=== PATIENT | female | born 1975 | race Caucasian/White ===

== ENCOUNTER 2020-11-17 | Outpatient (REF) | payer OTHER, SELFPAY | END 2020-11-17 00:01 | disposition home or self-care (01) | LOC: HO.WFDLNP | PROVIDERS: Visit Provider Family Medicine | DX: Z20.822 Contact with and (suspected) exposure to COVID-19 (principal) | CPT/HCPCS: U0003 ==

== ENCOUNTER 2020-11-18 13:54 | Outpatient (REF) | payer OTHER, SELFPAY | END 2020-11-18 13:55 | disposition home or self-care (01) | LOC: HO.LNP 13:54 | PROVIDERS: Visit Provider Family Medicine | DX: Z13.89 Encounter for screening for other disorder (principal) ==

== ENCOUNTER 2022-10-19 16:41 | Outpatient (REF) | payer OTHER, SELFPAY ==
[2022-10-19 18:04] LABS: Alanine Aminotransferase 9 U/L (0-31); Alkaline Phosphatase 89 U/L (39-117); Anion Gap 9 (12-20); Aspartate Amino Transferase 12 U/L (5-31); Bilirubin Total 0.2 mg/dL (0.0-1.0); Blood Urea Nitrogen 15 mg/dL (9-16); Calcium 8.6 mg/dL (8.4-10.2); Carbon Dioxide 22 mmol/L (22-29); Chloride 110 mmol/L (96-108); Estimated Glomerular Filt Rate 56; Glucose Random 88 mg/dL (60-115); Potassium 3.9 mmol/L (3.3-5.1); Sodium 137 mmol/L (135-145); T4 Thyroxine 5.6 ug/dL (4.5-12.0); Thyroid Stimulating Hormone 0.78 uIU/mL (0.32-4.0); Total Protein 6.3 g/dL (6.5-8.0)
[2022-10-19 18:16] LABS: Folate 7.3 ng/mL (> or = 4.0); Vitamin B12 307 pg/mL (200-900)
[2022-10-21 09:14] LABS: Lyme Abs Screen <0.90 index
== END 2022-10-19 16:42 | disposition home or self-care (01) ==
LOC: HO.LAB 16:41
PROVIDERS: PCP Internal Medicine; Visit Provider Psychiatry & Neurology Neurology
DX: G43.909 Migraine, unspecified, not intractable, without status migrainosus (principal)
CPT/HCPCS: 36415; 80053; 82607; 82746; 84436; 84443; 86617; 86618

== ENCOUNTER 2022-10-25 17:44 | Outpatient (REF) | payer OTHER, SELFPAY | END 2022-10-25 17:45 | disposition home or self-care (01) | LOC: HO.MRI 17:44 | PROVIDERS: Visit Provider Psychiatry & Neurology Neurology | DX: G31.84 Mild cognitive impairment of uncertain or unknown etiology (principal) | CPT/HCPCS: 70551 ==

== ENCOUNTER → 2023-04-15 13:25 | Outpatient (BNVA) | payer OTHER, SELFPAY | PROVIDERS: PCP Internal Medicine; Visit Provider Physician Assistant | DX: M54.12 Radiculopathy, cervical region (principal) | CPT/HCPCS: 99202 ==

== ENCOUNTER 2023-06-09 08:10 | Day surgery (SDC) | payer OTHER, SELFPAY ==
--- NOTE | 2023-05-25 | ECG_ITS ---
Test Reason : preop Blood Pressure : / mmHG Vent. Rate : 061 BPM Atrial Rate : 061 BPM P-R Int : 146 ms QRS Dur : 076 ms QT Int : 436 ms P-R-T Axes : -13 056 037 degrees QTc Int : 438 ms Normal sinus rhythm with sinus arrhythmia Normal ECG When compared with ECG of 04-JUN-2019 16:50, No significant change was found Referred By: Sara Zepeda Electronically Signed By:Guanaco Dupree
[2023-05-25 12:40] VITALS: BMI 27.0
[2023-05-25 12:46] VITALS: BP 108/77; PULSE 69; RESP 20; O2SAT 96
--- NOTE | 2023-05-25 13:01 | P.CONAN_ITS ---
Documented by User: Sara Zepeda NP 06/02/23 12:30 HPI - Anesthesia Eval Consult details Narrative: 47yo F for C4-5,C5-6 Ant Cerv Discectomy w/ fusion, 06/09/23 No recent illness No increased CP/SOB. Chronic CP / body pain. SOB at baseline r/t hx smoking Hx of seizures. Last 2-3 years ago. On topamax and follows neuro GERD with prn tums PMFSH Active Problems Active Problems: All Active Problems (Updated 05/25/23 @ 12:55 by Merle Morocho RN) Contact with or exposure to other viral diseases (Acute) COPD exacerbation (Acute) Urinary hesitancy (Acute) Cough (Acute) Cervical radiculopathy (Acute) Past Medical History Medical History Agoraphobia Anxiety Arthritis Asthma Attention deficit disorder Back pain Bone spur Bronchitis Cervical root syndrome Closed head injury COPD (chronic obstructive pulmonary disease) COVID-19 Dementia Depression Diarrhea Difficulty swallowing Elevated cholesterol Fibromyalgia GERD (gastroesophageal reflux disease) History of traumatic head injury Kidney stones MCI (mild cognitive impairment) with memory loss Migraine Neuropathy Numbness Personal history of nonsuicidal self-injury PTSD (post-traumatic stress disorder) Seizures Shingles Thyroid nodule Umbilical hernia UTI (urinary tract infection) Vitamin D deficiency Weakness Wheezing Family History Family history of problems with anesthesia: No Surgical History Surgical History H/O breast augmentation History of hysterectomy Hx of inguinal hernia repair History of Problems with Anesthesia: No Social History Social History Are you a primary care navigator to a significant other at home: No Do you presently have visiting nurse or other home services: No (VNA, better life at home) Patient Tobacco Use Status: Former Tobacco user Quit Date: 2019 Years Smoked: 19 Use of substances other than those prescribed or required for medical reasons: Yes Substance Use Frequency: Daily Have you been hit, kicked, punched, or otherwise hurt by someone within the past year? If so, by whom?: No Are you DNR?: No Advance Directives: No Advance Directives Information Provided: No Advance Directives on File: No Recently lost weight without trying: No Eating poorly because of decreased appetite: No Nutrition Risks: No Nutritional Risk Patient : No : No Poor oral hygiene: No Meds Allergies Allergy/AdvReac Type Severity Reaction Status Date / Time SEASONAL ALLERGIES Allergy Unknown unk Uncoded 06/09/23 08:35 Home Medications Medication Instructions Recorded Confirmed Last Taken Type dextroamphetamine-amphetamine ER 1 cap PO BID 04/30/22 05/25/23 Unknown History 20 mg 24hr capsule,extend release (Adderall XR) cholecalciferol (vitamin D3) 50 50 mcg PO DAILY 05/25/23 05/25/23 Unknown History mcg (2,000 unit) tablet clonazepam 1 mg tablet 1 mg PO TID PRN Anxiety 05/25/23 05/25/23 Unknown History fluoxetine 20 mg capsule 20 mg PO BID 05/25/23 05/25/23 Unknown History fluticasone propionate 110 1 puff inhalation BID PRN 05/25/23 05/25/23 Unknown History mcg/actuation HFA aerosol inhaler Shortness Of Breath (Flovent HFA) meclizine 25 mg tablet 25 mg PO BEDTIME 05/25/23 05/25/23 Unknown History topiramate 50 mg tablet 50 mg PO BID 05/25/23 05/25/23 Unknown History trazodone 100 mg tablet 100 mg PO BEDTIME PRN Insomnia 05/25/23 05/25/23 Unknown History Exam Exam Date and Time: May 25, 2023 130 Height,Weight and Vital Signs: Height 5 ft 5 in Weight 73.482 kg Last Vital Signs Pulse 69 05/25/23 12:46 Resp 20 05/25/23 12:46 BP 108/77 05/25/23 12:46 Pulse Ox 96 05/25/23 12:46 O2 Del Method Room Air 05/25/23 12:46 Pertinent Lab Results Pertinent Lab Results: Lab Results 05/25/23 05/25/23 Range/Units 13:36 13:36 WBC 7.9 (4.8-10.8) X10*3/uL RBC 4.76 (4.20-5.50) X10*6/uL Hgb 15.2 (12.0-16.0) g/dl Hct 46.9 (37.0-47.0) % MCV 98.5 H (80.0-98.0) fL MCH 31.9 (27.0-33.0) pg MCHC 32.4 (31.0-35.0) g/dl RDW 11.7 (11.0-16.0) % Plt Count 253 (160-400) X10*3/uL MPV 10.1 (9.4-12.3) fL Absolute Nucleated RBC 0.000 (0.0-0.012) X10*3/uL Nucleated RBC % (auto) 0.0 (0.0-0.2) /100WBC Sodium 140 (135-145) mmol/L Potassium 4.7 D (3.3-5.1) mmol/L Chloride 109 H (96-108) mmol/L Carbon Dioxide 25 (22-29) mmol/L Anion Gap 11 L (12-20) BUN 12 (9-16) mg/dL Creatinine 0.85 (0.5-1.4) mg/dL Estim Creat Clear Calc 82.1 Estimated GFR > 60 Random Glucose 88 (60-115) mg/dL Calcium 9.1 (8.4-10.2) mg/dL Narrative Narrative: EKG 05/2023 Vent. Rate : 061 BPM ? ? Atrial Rate : 061 BPM ?? P-R Int : 146 ms? QRS Dur : 076 ms ? ? QT Int : 436 ms ? ? ? P-R-T Axes : -13 056 037 degrees ?? QTc Int : 438 ms ? Normal sinus rhythm with sinus arrhythmia Normal ECG When compared with ECG of 04-JUN-2019 16:50, No significant change was found Airway TM Dist: >3cm Neck ROM: Poor Loose/Missing/Broken Teeth: No Heart: RRR Lungs: CTAB Assessment and Plan Assessment Anesthesia Assessment: Anesthesia Plan Discussed and PAT Visit Final Anesthetic Review Family History of Problems with Anesthesia: No History of Problems with Anesthesia: No Documented by User: Walker Rodriguez MD 06/09/23 09:16 [facility] Past Medical History Medical History Agoraphobia Anxiety Arthritis Asthma Attention deficit disorder Back pain Bone spur Bronchitis Cervical root syndrome Closed head injury COPD (chronic obstructive pulmonary disease) COVID-19 Dementia Depression Diarrhea Difficulty swallowing Elevated cholesterol Fibromyalgia GERD (gastroesophageal reflux disease) History of traumatic head injury Kidney stones MCI (mild cognitive impairment) with memory loss Migraine Neuropathy Numbness Personal history of nonsuicidal self-injury PTSD (post-traumatic stress disorder) Seizures Shingles Thyroid nodule Umbilical hernia UTI (urinary tract infection) Vitamin D deficiency Weakness Wheezing Surgical History Surgical History H/O breast augmentation History of hysterectomy Hx of inguinal hernia repair Social History Social History Are you a primary care navigator to a significant other at home: No Do you presently have visiting nurse or other home services: No (VNA, better life at home) Patient Tobacco Use Status: Former Tobacco user Quit Date: 2018 Years Smoked: 19 Use of substances other than those prescribed or required for medical reasons: Yes Substance Use Frequency: Daily Have you been hit, kicked, punched, or otherwise hurt by someone within the past year? If so, by whom?: No Are you DNR?: No Advance Directives: No Advance Directives Information Provided: No Advance Directives on File: No Recently lost weight without trying: No Eating poorly because of decreased appetite: No Nutrition Risks: No Nutritional Risk Patient : No : No Poor oral hygiene: No Meds Allergies Allergy/AdvReac Type Severity Reaction Status Date / Time SEASONAL ALLERGIES Allergy Unknown unk Uncoded 06/09/23 08:35 Home Medications Medication Instructions Recorded Confirmed Last Taken Type dextroamphetamine-amphetamine ER 1 cap PO BID 04/30/22 05/25/23 Unknown History 20 mg 24hr capsule,extend release (Adderall XR) cholecalciferol (vitamin D3) 50 50 mcg PO DAILY 05/25/23 05/25/23 Unknown History mcg (2,000 unit) tablet clonazepam 1 mg tablet 1 mg PO TID PRN Anxiety 05/25/23 05/25/23 Unknown History fluoxetine 20 mg capsule 20 mg PO BID 05/25/23 05/25/23 Unknown History fluticasone propionate 110 1 puff inhalation BID PRN 05/25/23 05/25/23 Unknown History mcg/actuation HFA aerosol inhaler Shortness Of Breath (Flovent HFA) meclizine 25 mg tablet 25 mg PO BEDTIME 05/25/23 05/25/23 Unknown History topiramate 50 mg tablet 50 mg PO BID 05/25/23 05/25/23 Unknown History trazodone 100 mg tablet 100 mg PO BEDTIME PRN Insomnia 05/25/23 05/25/23 Unknown History Exam Airway Mallampati Class: III Assessment and Plan Assessment Anesthesia Assessment: Chart Reviewed Final Anesthetic Review NPO: Yes ASA Class: III Final Preanesthetic Review: No Changes in Pt Med Stat, Meds/Allgs Chart Reviewed, Consent Obtained/Reviewed and Anes Risks/Benef Reviewed Patient Risk: Intermediate Procedure Risk: Intermediate Anesthetic Plan Anesthetic Plan: GA and Agree w/ Assess. and Plan Disposition: Standard PACU
[2023-05-25 14:38] LABS: Hematocrit 46.9 % (37.0-47.0); Hemoglobin 15.2 g/dl (12.0-16.0); Mean Corpuscular HGB Conc 32.4 g/dl (31.0-35.0); Mean Corpuscular Hemoglobin 31.9 pg (27.0-33.0); Mean Corpuscular Volume 98.5 fL (80.0-98.0); Mean Platelet Volume 10.1 fL (9.4-12.3); Platelet Count 253 X10*3/uL (160-400); Red Blood Count 4.76 X10*6/uL (4.20-5.50); Red Cell Distribution Width 11.7 % (11.0-16.0); White Blood Count 7.9 X10*3/uL (4.8-10.8)
[2023-05-26 02:37] LABS: Anion Gap 11 (12-20); Blood Urea Nitrogen 12 mg/dL (9-16); Calcium 9.1 mg/dL (8.4-10.2); Carbon Dioxide 25 mmol/L (22-29); Chloride 109 mmol/L (96-108); Creatinine Clr Calc Pharmacy 82.1; Estimated Glomerular Filt Rate > 60; Glucose Random 88 mg/dL (60-115); Potassium 4.7 mmol/L (3.3-5.1); Sodium 140 mmol/L (135-145)
[2023-06-09] VITALS (12 sets, daily range): BP systolic 113–162; BP diastolic 64–90; PULSE 61–81; RESP 16–20; TEMP 36.1–37; O2SAT 94–98
--- NOTE | ~2023-06-09 | FL_ITS ---
EXAMINATION: XR FLUOROSCOPY WITH IMAGES CLINICAL INFORMATION: C4-C5 and C5-C6 anterior cervical discectomy with fusion. COMPARISON: None available. TECHNIQUE: Fluoroscopy Supervised By: Dr Aldana. Fluoroscopy Time: Less than 10 seconds. Cumulative Dose: 1.26 mGy. DAP: 0.345 Gycm2. Images: 2. FINDINGS: 2 intraoperative fluoroscopic imaging demonstrates hardware in place for anterior cervical discectomy and fusion at the C4-C5 and C5-C6 levels. Hardware appears intact on this C-arm study. FL/FL guidance in OR IMPRESSION: Intraoperative fluoroscopy for cervical spinal surgery.
--- NOTE | 2023-06-09 07:10 | P.DS_ITS ---
DS: Providers Provider Primary care physician: Mayte Spencer MD DS: Diagnosis Discharge Diagnosis (1) Cervical radiculopathy: Status: Acute DS: Summary Time Spent with Patient Time attestation: Total time managing care of this patient today ____ minutes. Discharge coordination time: Less than 30 minutes Quality: Safe Use of Opioids Does Pt have an Active Cancer Diagnosis on the Problem List?: No Quality: Stroke Does the patient have a stroke diagnosis?: No Physical Exam Vital Signs: Vital Signs: Last Vital Signs Pulse 69 05/25/23 12:46 Resp 20 05/25/23 12:46 BP 108/77 05/25/23 12:46 Pulse Ox 96 05/25/23 12:46 O2 Del Method Room Air 05/25/23 12:46 BMI result Body Mass Index 27.0 Discharge Plan Discharge Anticipated Discharge Date/Time: 06/09/23 12:06 Patient Disposition: Home, Self-Care Discharge Diagnosis: CERVICAL MYELOPATHY Referrals: Mayte Spencer MD [Primary Care Provider] - 1 Week Discharge Medications: Continued clonazepam 1 mg tablet 1 mg PO TID PRN (Reason: Anxiety) trazodone 100 mg tablet 100 mg PO BEDTIME PRN (Reason: Insomnia) meclizine 25 mg tablet 25 mg PO BEDTIME fluoxetine 20 mg capsule 20 mg PO BID fluticasone propionate [Flovent HFA] 110 mcg/actuation HFA aerosol inhaler 1 puff inhalation BID PRN (Reason: Shortness Of Breath) topiramate 50 mg Tablet 50 mg PO BID cholecalciferol (vitamin D3) 50 mcg (2,000 unit) tablet 50 mcg PO DAILY dextroamphetamine-amphetamine [Adderall XR] 20 mg capsule,extended release 24hr 1 cap PO BID albuterol sulfate [ProAir HFA] 90 mcg/actuation HFA aerosol inhaler 2 puff inhalation Q4-6H PRN (Reason: shortness of breath or wheezing) 30 Days Qty: 8.5 0RF Discharge Orders: Discharge Order (Routine); Ordered 06/09/23 Ordered By: Kwame Griffin Diet: Advance to usual diet Activity on Discharge: As tolerated Stand Alone Forms: Patient Portal Discharge page Activity Restrictions/Additional Instructions: After your spinal surgery we ask you to observe the following restrictions /guidelines: Activity: It is normal to feel some discomfort as you increase your activity, but that will improve with time. We ask you avoid heavy lifting or acitivities that cause pain. As a general rule, 8lbs is a safe limit for lifting right after surgery. Walk as much as you feel comfortable but not to exhaustion. You will feel extra tired the first few days after surgery. Stay well hydrated. It is OK to walk up and down stairs You may return to driving when you are off narcotics (such as vicodin, oxycodone, dilaudid, etc), and you are back to normal functional capacity. If you have any concerns please check with office before driving. Return to work is specific to each patient and each surgery, so please speak with your doctor/PA at first follow up. Please bring paperwork such as FMLA at that time if you need it filled out. Medications: We will give you a short supply of narcotics after surgery (usually one weeks worth). If you need more please call the office but do not use more than prescribed. You will need to give our office 48 hours notice if you need narcotics refilled and we do not fill narcotics on weekends or evenings. If you are on a narcotic, it is a good idea to take a stool softener such as colace or senna to avoid constipation If you take blood thinner such as aspirin, Plavix, Coumadin, Effient, Eliquis etc for conditions such as Afib, DVT, Pulmonary embolus, coronary disease, stents etc please speak with your surgeon about specific details as to when you can resume these medications. You can resume NSAIDs on post op day 1 (eg: Motrin, Naproxen, etc). Follow up: Please call the office, , after surgery to arrange a 3 week follow up for wound check. Wound Care: You may remove your dressing on the first day after surgery. You may leave open to air. Please do not remove the steri strips underneath. they will fall off on their own in one week. IT IS NORMAL FOR THE WOUND TO OOZE OR BE BLOODY FOR A FEW DAYS AFTER SURGERY. I F THIS HAPPENS JUST PLACE NEW DRESSING OVER IT TO AVOID STAINING CLOTHES. You may shower on post op day # 1 We ask that you do not let the water soak the wound. If it does get wet, just towel dry lightly. Please do not scrub your incision or place any type of chemical/ointment on the wound. No tub baths, pools or jacuzzis for one month. If you have any leaking or redness from your wound, or fevers, please call office Care Plan Goals: Follow-up in office in 3 weeks. Health Concerns: None. Plan of Treatment: Return to activity as tolerated. Assessment: Stable.
--- NOTE | 2023-06-09 07:10 | P.DS_ITS ---
DS: Providers Provider Primary care physician: Mayte Spencer MD DS: Diagnosis Discharge Diagnosis (1) Cervical radiculopathy: Status: Acute DS: Summary Time Spent with Patient Time attestation: Total time managing care of this patient today ____ minutes. Physical Exam Vital Signs: Vital Signs: Last Vital Signs Pulse 69 05/25/23 12:46 Resp 20 05/25/23 12:46 BP 108/77 05/25/23 12:46 Pulse Ox 96 05/25/23 12:46 O2 Del Method Room Air 05/25/23 12:46 BMI result Body Mass Index 27.0 Discharge Plan Discharge Patient Disposition: Home, Self-Care Referrals: Mayte Spencer MD [Primary Care Provider] - 1 Week Discharge Medications: No Action clonazepam 1 mg tablet 1 mg PO TID PRN (Reason: Anxiety) trazodone 100 mg tablet 100 mg PO BEDTIME PRN (Reason: Insomnia) meclizine 25 mg tablet 25 mg PO BEDTIME fluoxetine 20 mg capsule 20 mg PO BID fluticasone propionate [Flovent HFA] 110 mcg/actuation HFA aerosol inhaler 1 puff inhalation BID PRN (Reason: Shortness Of Breath) topiramate 50 mg Tablet 50 mg PO BID cholecalciferol (vitamin D3) 50 mcg (2,000 unit) tablet 50 mcg PO DAILY dextroamphetamine-amphetamine [Adderall XR] 20 mg capsule,extended release 24hr 1 cap PO BID albuterol sulfate [ProAir HFA] 90 mcg/actuation HFA aerosol inhaler 2 puff inhalation Q4-6H PRN (Reason: shortness of breath or wheezing) 30 Days Qty: 8.5 0RF Diet: Advance to usual diet Activity on Discharge: As tolerated Stand Alone Forms: Patient Portal Discharge page Activity Restrictions/Additional Instructions: After your spinal surgery we ask you to observe the following restrictions/guidelines: Activity: It is normal to feel some discomfort as you increase your activity, but that will improve with time. We ask you avoid heavy lifting or acitivities that cause pain. As a general rule, 8lbs is a safe limit for lifting right after surgery. Walk as much as you feel comfortable but not to exhaustion. You will feel extra tired the first few days after surgery. Stay well hydrated. It is OK to walk up and down stairs You may return to driving when you are off narcotics (such as vicodin, oxycodone, dilaudid, etc), and you are back to normal functional capacity. If you have any concerns please check with office before driving. Return to work is specific to each patient and each surgery, so please speak with your doctor/PA at first follow up. Please bring paperwork such as FMLA at that time if you need it filled out. Medications: We will give you a short supply of narcotics after surgery (usually one weeks worth). If you need more please call the office but do not use more than prescribed. You will need to give our office 48 hours notice if you need narcotics refilled and we do not fill narcotics on weekends or evenings. If you are on a narcotic, it is a good idea to take a stool softener such as colace or senna to avoid constipation If you take blood thinner such as aspirin, Plavix, Coumadin, Effient, Eliquis etc for conditions such as Afib, DVT, Pulmonary embolus, coronary disease, stents etc please speak with your surgeon about specific details as to when you can resume these medications. You can resume NSAIDs on post op day 1 (eg: Motrin, Naproxen, etc). Follow up: Please call the office, , after surgery to arrange a 3 week follow up for wound check. Wound Care: You may remove your dressing on the first day after surgery. You may leave open to air. Please do not remove the steri strips underneath. they will fall off on their own in one week. IT IS NORMAL FOR THE WOUND TO OOZE OR BE BLOODY FOR A FEW DAYS AFTER SURGERY. IF THIS HAPPENS JUST PLACE NEW DRESSING OVER IT TO AVOID STAINING CLOTHES. You may shower on post op day # 1 We ask that you do not let the water soak the wound. If it does get wet, just towel dry lightly. Please do not scrub your incision or place any type of chemical/ointment on the wound. No tub baths, pools or jacuzzis for one month. If you have any leaking or redness from your wound, or fevers, please call office Care Plan Goals: Follow-up in office in 3 weeks. Health Concerns: None. Plan of Treatment: Return to activity as tolerated. Assessment: Stable.
--- NOTE | 2023-06-09 07:15 | MHC.SHP ---
Pre-Procedural Eval Section A Date of Service: 06/09/23 Section B Chief Complaint: Radiculopathy, cervical region Allergies: Allergies Allergy/AdvReac Type Severity Reaction Status Date / Time SEASONAL ALLERGIES Allergy Unknown unk Uncoded 07/24/20 19:04 Review of Systems Sugical H&P ROS: Negative: Constitution, Cardiovascular, Respiratory, Neurological, Psychiatric, Hem-Onc, Allergic/Immunologic, Gastrointestinal, Genitourinary, Musculoskeletal, Integumentary, Endocrine and Eyes/Ears/Nose/Throat Exam Surgical H&P Exam: Not Evaluated: HEENT, Not Evaluated: Heart, Not Evaluated: Lungs, Not Evaluated: Extremities, Not Evaluated: Abdomen, Not Evaluated: Skin and Not Evaluated: Neurological Plan Diagnosis/Plan: Unchanged I have reviewed the history and physical and performed a pertinent physical examination on my patient. No changes have occurred unless specified. C4-5,C5-6 Ant Cerv Discectomy w/ fusion Time Spent With Patient Time: Total time managing care of this patient today __10__ minutes.
[2023-06-09] MEDS: Lactated Ringers 1,000 ML 100 ML IVCONT (07:59)
[2023-06-09] MEDS: Gabapentin 300 MG CAPSULE PO (08:38)
[2023-06-09] MEDS: methocarbamoL 750 MG TABLET PO (08:38)
[2023-06-09] MEDS: Albuterol Sulfate (0.083%) 2.5 MG/3 ML VIAL.NEB INHALE (08:46)
--- NOTE | 2023-06-09 09:17 | MHC.SHP ---
Pre-Procedural Eval Section A Date of Service: 06/09/23 Section B Chief Complaint: Radiculopathy, cervical region Allergies: Allergies Allergy/AdvReac Type Severity Reaction Status Date / Time SEASONAL ALLERGIES Allergy Unknown unk Uncoded 06/09/23 08:35 Review of Systems Sugical H&P ROS: Negative: Constitution, Cardiovascular, Respiratory, Neurological, Psychiatric, Hem-Onc, Allergic/Immunologic, Gastrointestinal, Genitourinary, Musculoskeletal, Integumentary, Endocrine and Eyes/Ears/Nose/Throat Exam Surgical H&P Exam: Not Evaluated: HEENT, Not Evaluated: Heart, Not Evaluated: Lungs, Not Evaluated: Extremities, Not Evaluated: Abdomen, Not Evaluated: Skin and Not Evaluated: Neurological Plan I have reviewed the history and physical and performed a pertinent physical examination on my patient. No changes have occurred unless specified. Plan remaikns the same, ACDF 4-5 and C5-6 Time Spent With Patient Time: Total time managing care of this patient today _10___ minutes.
--- NOTE | 2023-06-09 09:37 | PC.NURSE ---
respiratory treatment given preop as ordered. pt has bilateral diminished bases. dr. cristela chung.
--- NOTE | 2023-06-09 12:05 | P.DS_ITS ---
DS: Providers Provider Date of Service: 06/09/23 Date of admission: 06/09/23 08:10 Primary care physician: Mayte Spencer MD DS: Diagnosis Discharge Diagnosis (1) Cervical radiculopathy: Status: Acute DS: Summary Time Spent with Patient Time attestation: Total time managing care of this patient today ____ minutes. Discharge coordination time: Less than 30 minutes Quality: Safe Use of Opioids Does Pt have an Active Cancer Diagnosis on the Problem List?: No Quality: Stroke Does the patient have a stroke diagnosis?: No Physical Exam Vital Signs: Vital Signs: Last Vital Signs Temp 98.6 F 06/09/23 08:34 Pulse 61 06/09/23 08:46 Resp 16 06/09/23 08:46 BP 119/68 06/09/23 08:34 Pulse Ox 96 06/09/23 08:34 O2 Del Method Room Air 06/09/23 08:34 BMI result Body Mass Index 27.0 Discharge Plan Discharge Anticipated Discharge Date/Time: 06/09/23 12:06 Patient Disposition: Home, Self-Care Discharge Diagnosis: CERVICAL MYELOPATHY Referrals: Mayte Spencer MD [Primary Care Provider] - 1 Week Discharge Medications: Continued clonazepam 1 mg tablet 1 mg PO TID PRN (Reason: Anxiety) trazodone 100 mg tablet 100 mg PO BEDTIME PRN (Reason: Insomnia) meclizine 25 mg tablet 25 mg PO BEDTIME fluoxetine 20 mg capsule 20 mg PO BID fluticasone propionate [Flovent HFA] 110 mcg/actuation HFA aerosol inhaler 1 puff inhalation BID PRN (Reason: Shortness Of Breath) topiramate 50 mg Tablet 50 mg PO BID cholecalciferol (vitamin D3) 50 mcg (2,000 unit) tablet 50 mcg PO DAILY dextroamphetamine-amphetamine [Adderall XR] 20 mg capsule,extended release 24hr 1 cap PO BID albuterol sulfate [ProAir HFA] 90 mcg/actuation HFA aerosol inhaler 2 puff inhalation Q4-6H PRN (Reason: shortness of breath or wheezing) 30 Days Qty: 8.5 0RF Discharge Orders: Discharge Order (Routine); Ordered 06/09/23 Ordered By: Kwame Griffin Diet: Advance to usual diet Activity on Discharge: As tolerated Stand Alone Forms: Patient Portal Discharge page Activity Restrictions/Additional Instructions: After your spinal surgery we ask you to observe the following restri ctions/guidelines: Activity: It is normal to feel some discomfort as you increase your activity, but that will improve with time. We ask you avoid heavy lifting or acitivities that cause pain. As a general rule, 8lbs is a safe limit for lifting right after surgery. Walk as much as you feel comfortable but not to exhaustion. You will feel extra tired the first few days after surgery. Stay well hydrated. It is OK to walk up and down stairs You may return to driving when you are off narcotics (such as vicodin, oxycodone, dilaudid, etc), and you are back to normal functional capacity. If you have any concerns please check with office before driving. Return to work is specific to each patient and each surgery, so please speak with your doctor/PA at first follow up. Please bring paperwork such as FMLA at that time if you need it filled out. Medications: We will give you a short supply of narcotics after surgery (usually one weeks worth). If you need more please call the office but do not use more than prescribed. You will need to give our office 48 hours notice if you need narcotics refilled and we do not fill narcotics on weekends or evenings. If you are on a narcotic, it is a good idea to take a stool softener such as colace or senna to avoid constipation If you take blood thinner such as aspirin, Plavix, Coumadin, Effient, Eliquis etc for conditions such as Afib, DVT, Pulmonary embolus, coronary disease, stents etc please speak with your surgeon about specific details as to when you can resume these medications. You can resume NSAIDs on post op day 1 (eg: Motrin, Naproxen, etc). Follow up: Please call the office, , after surgery to arrange a 3 week follow up for wound check. Wound Care: You may remove your dressing on the first day after surgery. You may leave open to air. Please do not remove the steri strips underneath. they will fall off on their own in one week. IT IS NORMAL FOR THE WOUND TO OOZE OR BE BLOODY FOR A FEW DAYS AFTER SURGERY. IF THIS HAPPENS JUST PLACE NEW DRESSING OVER IT TO AVOID STAINING CLOTHES. You may shower on post op day # 1 We ask that you do not let the water soak the wound. If it does get wet, just towel dry lightly. Please do not scrub your incision or place any type of chemical/ointment on the wound. No tub baths, pools or jacuzzis for one month. If you have any leaking or redness from your wound, or fevers, please call office Care Plan Goals: Follow-up in office in 3 weeks. Health Concerns: None. Plan of Treatment: Return to activity as tolerated. Assessment: Stable.
[2023-06-09] MEDS: HYDROmorphone HCl 0.5 MG/0.5 ML SYRINGE 0.25 MG IVPUSH ×2 (12:30→12:35)
--- NOTE | 2023-06-09 13:50 | PC.NURSE ---
patient prior to discharge stating pain in right shoulder less than normal at home. and full feeling and non numbness in legs fully resolved
--- NOTE | 2023-06-09 14:21 | W.PM.OPN ---
Operative Note Operative Note Date of Service: 06/09/23 Narrative: Preoperative Diagnosis: Bilateral cervical radiculopathy due to degenerative disc disease C4-5 C5-6 Procedure: C4-5, C5-6Anterior discectomy, arthrodesis and implantation cage ; C4-C6 anterior instrumentation ; local autograft; microscope Informed Consent was obtained for this operation. I have explained the nature, purpose and benefits of the operation. I have discussed the risks and benefit of the operation including possible complications or adverse events with patient/family. Alternative(s) were discussed with the patient with their relative benefits and risks as well as the consequences of not accepting the operation were included in obtaining consent. Surgeon: SERGIO FRY MD, PHD Procedure Assisted By: Kwame Griffin PA-C Description of Procedure: this 47-year-old female suffers from bilateral cervical radiculopathy. An MRI of cervical spine shows advanced degenerative disc disease C4-5 C5-C6. She was offered an anterior diskectomy and fusion of these levels. The procedure complications were explained. The patient was consented. The patient was brought to the operating room and endotracheally intubated. The patient was put in supine position with slight extension of the neck. Prep and drape was done followed by timeout. A mid cervical incision was made followed by opening of the platysma. The prevertebral fascia was reached following the natural planes while the physician data analysis assistant provided manual retraction. The prevertebral fascia was opened to expose the disc space. A spinal needle was placed in the disk spaces to confirm the correct levels with xray. The longus colli muscles were released bilaterally and a self retaining retractor was inserted. Two Mclean pins were placed in the C4 and C5 vertebral bodies and distraction was give over the interspace. The discectomy was completed toward the posterior annulus of the disc. The microscope was brought in. The remainder of the discectomy was completed. The posterior ligament was opened and resected to expose the underlying dura. Large compressive osteophytes were resected from the body of C4 and C5 and saved for autograft. Bilateral foraminotomies were done to decompress the exiting nerve roots. The endplates were prepared after which a 6 mm cage filled with autograft was inserted into the disc space. A separate attached plate was locked down with 2 x 14 mm screws as anterior instrumentation. Then attention was turned to the C5-C6 level. Distraction was giving over the interspace. The disc space was very collapsed and therefore I needed to use the high-speed drill to create a path towards the posterior longitudinal ligament. The ligament was opened and for sec to it and again the large posterior osteophytes were resected from the body of C5 and C6 to decompress the thecal sac. Bilateral foraminotomies were also performed to decompress the exiting nerve roots. Another 6 mm cage filled with autograft was inserted into the disc space. Separate attached plate was locked down with 2 x 14 mm screws for anterior instrumentation. Final x-rays in AP and lateral projection showed a satisfactory position of the implant. The physician data analysis assistant took over. The Mclean pin was removed. Hemostasis was done. He closed the incision in 2 layers with a 3-0 Vicryl. Steri-Strips used to approximate incision. An OpSite with Tegaderm was used to cover the incision. All sponge and needle counts were correct. Patient was extubated and transported in stable is to recovery room. Anesthesia: General Estimated Blood Loss (ml): Twenty Duration of Surgery: 2 hours Postoperative Plan: Discharge home Complications: None
== END 2023-06-09 13:38 | disposition home or self-care (01) ==
LOC: HO.SSSA 12:06 → HO.SSS 06-10 11:49
PROVIDERS: Nurse Practitioner; PCP Internal Medicine; Visit Provider Neurological Surgery
PROC: (CPT 22551; principal; 2023-06-09 09:10)
DX: M50.121 Cervical disc disorder at C4-C5 level with radiculopathy (principal); M50.122 Cervical disc disorder at C5-C6 level with radiculopathy; Z79.899 Other long term (current) drug therapy; Z79.1 Long term (current) use of non-steroidal anti-inflammatories (NSAID)
CPT/HCPCS: 22551; 22552; 22853 ×2; 20936; 22845; 36415; 80048; 85027; 93005; 94640; C1713; J0131; J0690; J1100; J1170; J1885; J2250; J2371; J2405; J3010

== ENCOUNTER → 2023-06-09 08:10 | Outpatient (BNV) | payer OTHER, SELFPAY | PROVIDERS: Admitting Provider Neurological Surgery; PCP Internal Medicine; Visit Provider Physician Assistant | DX: M54.12 Radiculopathy, cervical region (principal) | CPT/HCPCS: 20936; 22551; 22552; 22845; 22853 ==

== ENCOUNTER 2023-07-01 13:00 | Outpatient (AMB) | payer OTHER, SELFPAY ==
--- NOTE | 2023-07-01 13:11 | HO.SPINEOV ---
Intake Intake Visit Reasons: 1st post op Intake Note: Mrs. Maynard is here today for her 1st post-visit. Sand Blaster Required: No Allergies SEASONAL ALLERGIES Allergy (Unknown, Uncoded 06/09/23 08:35) unk Assessment & Plan Assessment & Plan (1) Cervical radiculopathy: Code(s): M54.12 - Radiculopathy, cervical region Plan Mrs Maynard is here in follow-up, she is 3 weeks out from her anterior cervical fusion C4-5 and C5-6. She has had tremendous relief of the symptoms going down her right arm and she has feeling in her arm again she is excited about that. She still having some dysphagia and neck discomfort. I reassured her that this is normal at this stage in should go away. Her wound is healed up very nicely We discussed activity guidelines, restrictions and expectations after anterior cervical fusion. Would like to see her back in 6 weeks with a set of x-rays. Thanh Aldana MD, PhD [facility] Coding Level of Care Code Global (44331) Diagnoses Cervical radiculopathy M54.12
== END 2023-07-01 13:33 | disposition home or self-care (01) ==
PROVIDERS: PCP Internal Medicine; Visit Provider Physician Assistant
DX: M54.12 Radiculopathy, cervical region (principal)
CPT/HCPCS: 99024

== ENCOUNTER 2023-08-12 13:21 | Outpatient (AMB) | payer OTHER, SELFPAY ==
--- NOTE | 2023-08-12 13:24 | HO.SPINEOV ---
Intake Intake Visit Reasons: 2nd post op with xrays Allergies SEASONAL ALLERGIES Allergy (Unknown, Uncoded 06/09/23 08:35) unk Assessment & Plan Assessment & Plan (1) Cervical radiculopathy: Code(s): M54.12 - Radiculopathy, cervical region Plan Mrs Maynard is here in follow-up, she is about 2 months out from her anterior cervical fusion. She originally was seeing significant improvement but now she states that she is having for the last 3 weeks or so severe pain in the back of her neck, altered sensory changes on the back of her neck as well as pain going down both her arms. It feels worse than it was before surgery. Her strength and reflexes are normal. I reviewed her x-rays with Dr. Aldana in these look fine. I will order cervical MRI to check to see if there is a new disc herniation. If the MRI looks okay I will send her to physical therapy. Thanh Aldana MD, PhD [facility] Orders: Orders MR cervical spine wo con Today M54.12 - Radiculopathy, cervical region MANUEL Ring XR cervical spine 4V Today M54.12 - Radiculopathy, cervical region MANUEL Tirado Coding Level of Care Code Global (52174) Diagnoses Cervical radiculopathy M54.12
== END 2023-08-12 14:23 | disposition home or self-care (01) ==
PROVIDERS: PCP Internal Medicine; Visit Provider Physician Assistant
DX: M54.12 Radiculopathy, cervical region (principal)
CPT/HCPCS: 99024

== ENCOUNTER 2023-08-12 13:21 | Outpatient (REF) | payer OTHER, SELFPAY ==
--- NOTE | ~2023-08-12 | XR_ITS ---
EXAMINATION: XR CERVICAL SPINE CLINICAL INFORMATION: Cervical radiculopathy. COMPARISON: None. TECHNIQUE: Frontal, odontoid, bilateral oblique and lateral views of the cervical spine are obtained. FINDINGS: Vertebral body heights and alignment are normal. At C3-C4, there is mild anterior disc space narrowing and spondylosis. There are intact anterior Low Profile fixator devices at C4-C5 and C5-C6, without hardware failure or loosening. The remaining disc spaces are relatively well-maintained. No acute fracture or spondylolisthesis is seen. The posterior elements are intact. There is bilateral neural foraminal narrowing at C4-C5, and right neural foraminal narrowing is seen at C5-C6. There is no prevertebral soft tissue swelling. The dens and C7-T1 interface are normal. XR/XR cervical spine 4V IMPRESSION: 1. There is well-maintained alignment status-post C4-C5 and C5-C6 anterior discectomies and fusions. 2. There is bilateral neural foraminal narrowing at C4-C5, and right neural foraminal narrowing is seen at C5-C6. 3. At C3-C4, there is mild degenerative disc disease and spondylosis.
== END 2023-08-12 13:22 | disposition home or self-care (01) ==
LOC: HO.XRAY 13:21
PROVIDERS: PCP Internal Medicine; Visit Provider Physician Assistant
DX: M54.12 Radiculopathy, cervical region (principal)
CPT/HCPCS: 72050

== ENCOUNTER 2023-09-27 13:42 | Outpatient (REF) | payer OTHER, SELFPAY ==
--- NOTE | ~2023-09-27 | MR_ITS ---
EXAMINATION: MR CERVICAL SPINE WITHOUT AND WITH CONTRAST CLINICAL INFORMATION: Radiculopathy, cervical region. COMPARISON: Plain films of the cervical spine 08/12/2023. TECHNIQUE: MRI of the cervical spine was obtained using routine sequences with and without contrast. Intravenous contrast: Gadavist 7.5 mL. FINDINGS: VERTEBRAL BODIES AND PARASPINAL SOFT TISSUES: There is reversal of the normal cervical lordosis at C3-C4. There is narrowing of intervertebral disc height at this level, and there are degenerative endplate contour changes with mild edematous signal with enhancement. There are sequelae of ACDF procedures at C4-C5 and C5-C6, demonstrated on prior imaging. Increased signal with apparent enhancement along the inferior plate of C6 may be due to susceptibility artifact. Vertebral body heights are maintained, and no fractures are demonstrated. There is an area of increased T1 and T2 signal in the body of T4, most consistent with focal fat or a hemangioma. Overall, marrow signal is homogenous. The regional soft tissues are unremarkable. CERVICOMEDULLARY JUNCTION AND VISUALIZED POSTERIOR FOSSA: The craniocervical and posterior fossa structures are normal . Accounting for artifact, spinal cord signal appears normal and there is no abnormal enhancement. SPINAL LEVELS: C2-C3: There is mild left facet arthropathy. There is a small posterior disc protrusion but there is no cord compression or central stenosis. There are uncovertebral osteophytes and there is mild left foraminal narrowing. C3-C4: There is mild bilateral facet arthropathy. There is a broad-based posterior soft disc protrusion which is focally more prominent to the right of midline and there is effacement of CSF around the cord with minimal distortion of the cord on the right. There is mild central stenosis. There are uncovertebral osteophytes and there is mild bilateral foraminal narrowing. C4-C5: The facet joints appear normal. Posterior vertebral body contours are normal and there is no cord compression or central stenosis. The neural foramina appear patent bilaterally. C5-C6: The facet joints appear normal bilaterally. Posterior vertebral body contours are normal and there is no cord compression or central stenosis. There are uncovertebral osteophytes, and there is moderate right and mild left foraminal narrowing. C6-C7: The facet joints appear normal bilaterally. There is a shallow posterior disc protrusion with there is no cord compression or central stenosis. The neural foramina are patent bilaterally. C7-T1: There is mild left facet arthropathy. There is a small soft disc protrusion posteriorly in the midline with some distortion the ventral thecal sac, but there is no cord compression or central stenosis. The neural foramina are patent bilaterally. MR/MR cervical spine wo/w con IMPRESSION: 1. There are sequelae of ACDF procedures at C4-C5 and C5-C6, demonstrated on prior imaging. 2. At C3-C4 there is a broad-based posterior soft disc protrusion which is focally more prominent to the right of midline, and there is mild edematous endplate signal with enhancement at this level. There is mild central stenosis and there is mild bilateral foraminal narrowing. 3. At C5-C6 there are uncovertebral osteophytes and there is moderate right and mild left foraminal narrowing. 4. At C7-T1 there is a small soft disc protrusion posteriorly in the midline without cord compression or central stenosis. The neural foramina are patent.
[2023-09-27] MEDS: gadobutroL 7.5 ML VIAL IVPUSH (14:40)
== END 2023-09-27 13:43 | disposition home or self-care (01) ==
LOC: HO.MRI 13:42
PROVIDERS: PCP Physician Assistant; Visit Provider Physician Assistant
DX: M54.12 Radiculopathy, cervical region (principal)
CPT/HCPCS: 72156; A9585

== ENCOUNTER 2023-10-07 15:27 | Outpatient (AMB) | payer OTHER, SELFPAY ==
--- NOTE | 2023-10-07 14:42 | A.SPINEOV_ITS ---
Intake Intake Visit Reasons: MRI follow up Allergies SEASONAL ALLERGIES Allergy (Unknown, Uncoded 06/09/23 08:35) unk Assessment & Plan Assessment & Plan (1) Lumbar radiculopathy: Code(s): M54.16 - Radiculopathy, lumbar region Plan HPI: Estela is a 48-year-old female comes in today in follow-up after being last seen in our office for severe posterior neck pain, altered sensory changes on the back of her neck as well as pain going down both her arms. She was sent for cervical x-rays and cervical MRI, both of which were generally unremarkable. Today she complains of shooting pains down her left leg which starts in her low back goes down her buttocks/posterior thigh and terminates at the bottom of her foot. She reports that these symptoms are accompanied by bilateral lower extremity weakness. She reports no saddle anesthesia, bladder incontinence or fecal incontinence. She states she has tried an at home exercise regimen, fomz-[id number] medications, eixm-dnj-hqksgig pain patches, ice, heat, and extensive rest without alleviation of these symptoms. EXAM: On physical exam she has 4/5 strength with dorsiflexion and EHL bilaterally. She has 4/5 strength with knee extension on the Left. The rest of her strength is 5/5 intact. It is unclear if her exam is limited simply due to pain or due to her disclosed neuropathy. She does have brisk 3+ reflexes in her bilateral lower extremities, but is on SSRIs. (-) Rondon's, (-) clonus, (-) Babinski. IMAGING: No acute nerve impingement noted on MRI of cervical spine reviewed by MANUEL Kimball and this magnetic tape typewriter operator. No significant central canal stenosis or exiting foraminal stenosis. PLAN: Due to the patient's new onset of lower extremity symptoms, including shooting pains in a S1 distribution accompanied by weakness and previous upper extremity symptoms I believe it best to order her an MRI of the lumbar spine. In the interim while she is waiting to have the MRI completed could recommend that she attend a course of physical therapy for her upper extremities complaints. We will call her with the results of her MRI. Total amount of time spent in this visit was 35 minutes in discussion of symptoms, MRI imaging results and subsequent plan of care Kwame Aldana MD,PhD [facility] Orders: Orders MR lumbar spine wo con Today M54.16 - Radiculopathy, lumbar region PT Evaluation and Treatment Today M54.16 - Radiculopathy, lumbar region Coding Level of Care Code Est Pt Level 3 (34752) Diagnoses Lumbar radiculopathy M54.16
== END 2023-10-07 15:58 | disposition home or self-care (01) ==
PROVIDERS: PCP Physician Assistant; Visit Provider Physician Assistant
DX: M54.16 Radiculopathy, lumbar region (principal)
CPT/HCPCS: 99213

== ENCOUNTER → 2023-10-07 15:27 | Outpatient (BNVA) | payer OTHER, SELFPAY | PROVIDERS: PCP Physician Assistant; Visit Provider Physician Assistant | DX: M54.16 Radiculopathy, lumbar region (principal) | CPT/HCPCS: 99212 ==

== ENCOUNTER 2023-11-30 16:28 | Outpatient (REF) | payer OTHER, SELFPAY ==
--- NOTE | ~2023-11-30 | MR_ITS ---
EXAMINATION: MR LUMBAR SPINE WITHOUT CONTRAST CLINICAL INFORMATION: Radiculopathy lumbar region. The patient states chronic low back pain with left leg and hip pain. COMPARISON: There are no prior studies available for comparison at time of dictation. TECHNIQUE: MRI of the lumbar spine was obtained using routine sequences without contrast. FINDINGS: VERTEBRAL BODIES AND PARASPINAL STRUCTURES: There is anatomic alignment of the vertebral bodies. Intervertebral disc heights are maintained, but there is disc desiccation at L4-L5 and L5-S1. The vertebral bodies have normal height and contour, and no fractures are demonstrated. Overall, marrow signal is homogenous. There is a right parapelvic renal cyst. The visualized pelvic structures are unremarkable. CONUS MEDULLARIS AND CAUDA EQUINA: Normal, terminating at the level of L1-L2. The lower thoracic spinal cord appears normal. The cauda equina nerve roots and filum terminale appear normal. SPINAL LEVELS: L1-L2: There is mild facet arthropathy with a small facet joint effusion on the left. Posterior disc contour is normal in the no central stenosis. The neural foramina are patent bilaterally. L2-L3: There is mild bilateral facet arthropathy. Disc contour is normal. There is no central stenosis or foraminal narrowing. L3-L4: There is moderate bilateral facet arthropathy with ligamenta flava hypertrophy. Posterior disc contour is normal and there is no central stenosis. The neural foramina are patent bilaterally. L4-L5: There is moderate bilateral facet arthropathy with ligamenta flava hypertrophy and facet joint effusions. There is a broad-based shallow posterior disc protrusion with minimal flattening of the ventral thecal sac but there is no central stenosis. There is a small foraminal disc protrusion on the left with an annular fissure without exiting nerve root impingement. L5-S1: There is moderate right and mild to moderate left facet arthropathy. There is a shallow posterior disc protrusion with an annular fissure without mass effect on the thecal sac. There is no central stenosis. There is no foraminal nerve root impingement. MR/MR lumbar spine wo con IMPRESSION: 1. At L4-L5 there is moderate facet arthropathy and there is a broad-based shallow posterior disc protrusion. There is no central stenosis or foraminal nerve root impingement. 2. At L5-S1 there is moderate right and mild to moderate left facet arthropathy. There is a shallow posterior disc protrusion without mass effect on the thecal sac. There is no central stenosis. There is no foraminal nerve root impingement. 3. There are milder spondylitic and facet arthropathic changes at other levels as described above.
== END 2023-11-30 16:29 | disposition home or self-care (01) ==
LOC: HO.MRI 16:28
PROVIDERS: Visit Provider Physician Assistant
DX: M54.16 Radiculopathy, lumbar region (principal)
CPT/HCPCS: 72148

== ENCOUNTER 2023-12-16 13:58 | Outpatient (AMB) | payer OTHER, SELFPAY ==
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
[2023-12-16 14:05] VITALS: BP 122/58; PULSE 102; RESP 16; O2SAT 96; BMI 29.8
== END 2023-12-16 15:05 | disposition home or self-care (01) ==
PROVIDERS: PCP Physician Assistant; Visit Provider Nurse Practitioner Family
DX: M62.838 Other muscle spasm (principal); M54.16 Radiculopathy, lumbar region; M51.36 Other intervertebral disc degeneration, lumbar region; M47.816 Spondylosis without myelopathy or radiculopathy, lumbar region; M53.3 Sacrococcygeal disorders, not elsewhere classified
CPT/HCPCS: 99204

== ENCOUNTER → 2023-12-16 13:58 | Outpatient (BNVA) | payer OTHER, SELFPAY | PROVIDERS: PCP Physician Assistant; Visit Provider Nurse Practitioner Family | DX: M62.838 Other muscle spasm (principal); M54.16 Radiculopathy, lumbar region; M51.36 Other intervertebral disc degeneration, lumbar region; M47.816 Spondylosis without myelopathy or radiculopathy, lumbar region; M53.3 Sacrococcygeal disorders, not elsewhere classified | CPT/HCPCS: 99202 ==

== ENCOUNTER 2024-01-11 12:33 | Outpatient (REF) | payer OTHER, SELFPAY ==
--- NOTE | ~2024-01-11 | XR_ITS ---
EXAMINATION: XR LUMBOSACRAL SPINE WITH OBLIQUES CLINICAL INFORMATION: Spondylosis without myelopathy or radiculopathy, Ulysses lumbar region COMPARISON: MRI scan lumbar spine 12/01/2023 TECHNIQUE: AP, both oblique, and lateral views of the lumbar spine. Lateral view of the lumbosacral junction. FINDINGS: There 5 nonrib-bearing lumbar-type vertebral bodies. The height of vertebral bodies is well-maintained. There is mild disc space narrowing at L4-L5 with marginal osteophyte formation. There is multilevel degenerative facet joint disease, most pronounced at L3-L4, L4-L5 and L5-S1. There is no spondylolisthesis. XR/XR lumbar spine 6V w bending IMPRESSION: 1. Degenerative disc disease at L4-L5. 2. Multilevel degenerative facet joint disease.
--- NOTE | ~2024-01-11 | XR_ITS ---
EXAMINATION: XR SACROILIAC JOINTS CLINICAL INFORMATION: Sacral coccygeal disorders, not elsewhere classified COMPARISON: Same-day lumbar spine TECHNIQUE: 3 views of the sacroiliac joints FINDINGS: The bones are intact. No fracture. Alignment is anatomic. Sacroiliac joint spaces are well-maintained without erosions or surrounding sclerosis. XR/XR sacroiliac joint min 3V IMPRESSION: Normal sacroiliac joints.
== END 2024-01-11 12:34 | disposition home or self-care (01) ==
LOC: HO.XRAY 12:33
PROVIDERS: PCP Internal Medicine; Visit Provider Nurse Practitioner Family
DX: M53.3 Sacrococcygeal disorders, not elsewhere classified (principal); M47.816 Spondylosis without myelopathy or radiculopathy, lumbar region; M51.36 Other intervertebral disc degeneration, lumbar region; M54.16 Radiculopathy, lumbar region
CPT/HCPCS: 72114; 72202

== ENCOUNTER 2024-02-14 06:18 | Outpatient (REF) | payer OTHER, SELFPAY ==
--- NOTE | ~2024-02-14 | FL_ITS ---
EXAMINATION: XR FLUOROSCOPY WITH IMAGES CLINICAL INFORMATION: Bilateral lumbar pain injections. COMPARISON: Lumbar spine radiographs dated 01/11/2024; MRI lumbar spine dated 12/01/2023. TECHNIQUE: Fluoroscopy Supervised By: Dr. Kole Bernstein. Fluoroscopy Time: 0.6 minutes. Cumulative Dose: 9.90 mGy. DAP: 2.20 Gycm2. Images: 6. FINDINGS: The submitted images show injection needles and injected contrast in the vicinity of the bilateral L3-L4, L4-L5 and L5-S1 neural foramina. FL/FL guidance in treatment room IMPRESSION: Intraoperative fluoroscopic guidance is provided during lumbar pain management procedure. Please see the patient's Operative Report for full procedural details.
== END 2024-02-14 06:19 | disposition home or self-care (01) ==
LOC: CF 06:18
PROVIDERS: Visit Provider Anesthesiology
DX: M47.26 Other spondylosis with radiculopathy, lumbar region (principal); M62.838 Other muscle spasm; M51.36 Other intervertebral disc degeneration, lumbar region; M53.3 Sacrococcygeal disorders, not elsewhere classified
CPT/HCPCS: 64493; 64494; J2795; Q9967

== ENCOUNTER 2024-02-14 13:17 | Outpatient (AMB) | payer OTHER, SELFPAY ==
--- NOTE | 2024-02-14 13:16 | A.OFFVIS_ITS ---
Intake Vital Signs 02/14/24 13:25 Height 5 ft 5 in Weight 165 lb BMI 27.5 BP 132/70 Blood Pressure Location Rt brachial Position Sitting Respiration 14 Pulse 76 Pulse Source Pulse Oximeter Pulse Oximetry (%) 97 Oxygen Delivery Method Room Air Comment Pre-Op Intake Visit Reasons: BILATERAL DIAGNOSTIC L3, L4, DRL5 MBB Intake Note: Patient left before being discharged or having post op vitals done. Allergies SEASONAL ALLERGIES Allergy (Unknown, Uncoded 06/09/23 08:35) unk gabapentin Adverse Reaction (Intermediate, Uncoded 12/16/23 15:32) Confusion PFSH Medical History Attention deficit disorder Personal history of nonsuicidal self-injury Fibromyalgia COVID-19 Cervical root syndrome Bone spur Back pain Arthritis Difficulty swallowing Thyroid nodule Diarrhea Umbilical hernia GERD (gastroesophageal reflux disease) Kidney stones UTI (urinary tract infection) Vitamin D deficiency Anxiety Shingles PTSD (post-traumatic stress disorder) Migraine Depression History of traumatic head injury Dementia Neuropathy Weakness Numbness MCI (mild cognitive impairment) with memory loss Closed head injury Seizures Wheezing Bronchitis Elevated cholesterol Asthma Agoraphobia COPD (chronic obstructive pulmonary disease) Surgical History Hx of inguinal hernia repair History of hysterectomy H/O breast augmentation Social History (Updated 12/16/23 @ 15:44 by EMI Sal) Household Members: Significant Other Housing: House Are you a primary day care director to a significant other at home: No Do you presently have visiting nurse or other home services: No (VNA, better life at home) Alcohol intake: current Alcohol intake frequency: a few times a week Alcohol type: beer Patient Tobacco Use Status: Former Tobacco user Quit Date: 2018 Years Smoked: 19 Substance Use Type: Marijuana Physical Exam Vital Signs: Last Vital Signs Pulse 76 02/14/24 13:25 Resp 14 02/14/24 13:25 BP 132/70 02/14/24 13:25 Pulse Ox 97 02/14/24 13:25 Oxygen Delivery Method Room Air 02/14/24 13:25 BMI result Body Mass Index 27.5 Assessment & Plan Assessment & Plan (1) Muscle spasm: Code(s): M62.838 - Other muscle spasm Plan: Diagnostic medial branch block L3-L4 does ramus L5 bilateral. Informed consent was explained to the patient. All questions were explained and? answered.? The patient was taken inside the operating room where she was positioned prone on the operating table.? Time-out was performed delineating correct site, side, the nature of the procedure, patient's allergy, preoperative antibiotic if needed.? All operating room staff was participating in OR time-out procedure. The lower back was prepped with ChloraPrep and draped with sterile towels.? Sterilely draped C-arm was brought over the operating field and sq picture of L4-and L5 vertebra and S1 AREA were delineated on the screen.? Point of interest were delineated as connection of superior articular process of L4 and L5 vertebra bilaterally with corresponding transverse processes as well as connection of the sacral alae bilaterally with superior articular process of S1.? The projection of the point of interest to the skin were injected with the small amount of local anesthetic lidocaine 2% 1-1.5 cc.? After that 22 gauge 3- 1/2 inch spinal needle was driven sequentially to the points of interest in tunnel vision fashion. After needles gently contacted the bone at the point of interests the needle was injected with small amount of the contrast.? The injection of the contrast did not demonstrate any intravascular or intrathecal spread of the contrast.? After that injection of the?ropivacaine 0.5%-1cc was performed at each needle location.? Upon completion of the injections? needle was? removed and sterile Band-Aids were applied.? The? patient was taken outside of the operating room to recovery room where she recovered uneventfully.? The patient went home without immediate complications. (2) Lumbar radiculopathy: Code(s): M54.16 - Radiculopathy, lumbar region (3) Lumbar degenerative disc disease: Code(s): M51.36 - Other intervertebral disc degeneration, lumbar region (4) Lumbar spondylosis: Code(s): M47.816 - Spondylosis without myelopathy or radiculopathy, lumbar region (5) Sacroiliac joint pain: Code(s): M53.3 - Sacrococcygeal disorders, not elsewhere classified Plan Lumbar spine and sacroiliac joint imaging to assess degree of degenerative changes, any subluxation, listhesis, compression fractures or pars defects, prior to interventional treatments. Discussed treatments for axial low back pain with discogenic and sacroiliac joint pain components. Tentatively plan for diagnostic bilateral L3-L4 DR L5 medial branch blocks with local and fluoroscopy. Expectations, risks and be nefits were reviewed. If patient has significant relief from the diagnostic blocks for her axial low back pain, will consider either therapeutic injections, Sprint PNS or RFA depending on her preference. We also discussed SCS and ITDD trials and implants for a more permanent pain management. Informational pamphlets provided. Scripts provided for methocarbamol, meloxicam and lidocaine patches for chronic low back pain and muscle spasms. Side effects and precautions were discussed with patient. All questions and concerns have been answered and patient agreed with the plan. Follow up for xray results/medication review and sooner as needed. Orders: Orders FL guidance in treatment room 02/14/24 M47.816 - Spondylosis without myelopathy or radiculopathy, lumbar region Coding Level of Care Code Procedure Only Diagnoses Muscle spasm M62.838 Lumbar radiculopathy M54.16 Lumbar degenerative disc disease M51.36 Lumbar spondylosis M47.816 Sacroiliac joint pain M53.3
[2024-02-14 13:25] VITALS: BP 132/70; PULSE 76; RESP 14; O2SAT 97; BMI 27.5
== END 2024-02-14 14:52 | disposition home or self-care (01) ==
LOC: HO.PMCPRC 13:17
PROVIDERS: PCP Internal Medicine; Visit Provider Anesthesiology
DX: M47.816 Spondylosis without myelopathy or radiculopathy, lumbar region (principal)
CPT/HCPCS: 64493; 64494

== ENCOUNTER 2024-02-17 10:10 | Outpatient (AMB) | payer OTHER, SELFPAY ==
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
[2024-02-17 10:31] VITALS: BP 126/56; PULSE 78; O2SAT 100; BMI 27.5
== END 2024-02-17 10:44 | disposition home or self-care (01) ==
PROVIDERS: PCP Internal Medicine; Visit Provider Nurse Practitioner Family
DX: M62.838 Other muscle spasm (principal); M51.36 Other intervertebral disc degeneration, lumbar region; M47.816 Spondylosis without myelopathy or radiculopathy, lumbar region; M53.3 Sacrococcygeal disorders, not elsewhere classified
CPT/HCPCS: 99213

== ENCOUNTER → 2024-02-17 10:10 | Outpatient (BNVA) | payer OTHER, SELFPAY | PROVIDERS: PCP Internal Medicine; Visit Provider Nurse Practitioner Family | DX: M51.36 Other intervertebral disc degeneration, lumbar region (principal); M47.816 Spondylosis without myelopathy or radiculopathy, lumbar region; M62.838 Other muscle spasm; M53.3 Sacrococcygeal disorders, not elsewhere classified | CPT/HCPCS: 99212 ==

== ENCOUNTER 2024-11-20 14:10 | Outpatient (AMB) | payer OTHER, SELFPAY ==
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
[2024-11-20 14:18] VITALS: BP 132/74; PULSE 85; BMI 29.2
== END 2024-11-20 14:31 | disposition home or self-care (01) ==
PROVIDERS: PCP Internal Medicine; Visit Provider Nurse Practitioner Family
DX: M25.551 Pain in right hip (principal); M25.552 Pain in left hip; M25.50 Pain in unspecified joint; M51.369 Other intervertebral disc degeneration, lumbar region without mention of lumbar back pain or lower extremity pain; M47.816 Spondylosis without myelopathy or radiculopathy, lumbar region; M53.3 Sacrococcygeal disorders, not elsewhere classified
CPT/HCPCS: 99214; G2211

== ENCOUNTER → 2024-11-20 14:10 | Outpatient (BNVA) | payer OTHER, SELFPAY | PROVIDERS: PCP Internal Medicine; Visit Provider Nurse Practitioner Family | DX: M25.551 Pain in right hip (principal); M25.552 Pain in left hip; M25.50 Pain in unspecified joint; M47.816 Spondylosis without myelopathy or radiculopathy, lumbar region; M51.360 Other intervertebral disc degeneration, lumbar region with discogenic back pain only; M53.3 Sacrococcygeal disorders, not elsewhere classified | CPT/HCPCS: 99212 ==

== ENCOUNTER 2024-11-20 15:11 | Outpatient (REF) | payer OTHER, SELFPAY ==
--- NOTE | ~2024-11-20 | XR_ITS ---
EXAMINATION: XR hip BI w PEL 1V HISTORY: M25.551 - Pain in right hip COMPARISON: Correlation is made with images of the sacroiliac joints C3 624. FINDINGS: A single AP view of the pelvis and two views of each hip are submitted. There is sclerosis of the symphysis pubis without change, suggestive of osteitis pubis. There is no fracture or dislocation. There is slight bilateral joint space narrowing. The soft tissues are unremarkable. XR/XR hip BI w PEL 1V IMPRESSION: Slight bilateral joint space narrowing. Electronically signed by: Dominic Montalvo MD 11/22/2024 03:43 PM EST
== END 2024-11-20 15:12 | disposition home or self-care (01) ==
LOC: HO.XRAY 15:11
PROVIDERS: PCP Internal Medicine; Visit Provider Nurse Practitioner Family
DX: M25.552 Pain in left hip (principal); M25.551 Pain in right hip
CPT/HCPCS: 73521

== ENCOUNTER → 2024-11-20 15:12 | Outpatient (BNV) | payer OTHER, SELFPAY | PROVIDERS: PCP Internal Medicine; Visit Provider Radiology Diagnostic Radiology | DX: M25.551 Pain in right hip (principal) | CPT/HCPCS: 73521 ==